=== PATIENT | male | born 1960 | race Caucasian/White ===

== ENCOUNTER 2018-09-30 22:07 | Emergency (ER) | payer BC ==
[2018-09-30] MEDS ORDERED: Ondansetron 4 MG Tab.DIS PO ONE (22:44)
[2018-09-30] MEDS ORDERED: Ketorolac 60 MG/2 ML SDV IM ONE (22:44)
[2018-09-30] MEDS ORDERED: HYDROmorphone 2 MG/ML SDV IM ONE (22:47)
[2018-10-01] MEDS ORDERED: Acetaminophen/oxyCODONE 325-5 MG Tab PO ONE (00:02)
== END 2018-10-01 00:12 | disposition home or self-care (01) ==
LOC: FB.ED 22:07
DX: M54.42 Lumbago with sciatica, left side (principal)
CPT/HCPCS: 96372 ×2; 99283; A9270 ×2; J1170; J1885